=== PATIENT | female | born 1960 | race African-American/Black ===

== ENCOUNTER 2020-03-04 20:41 | Inpatient (IN) | payer MEDICAID ==
[~2020-03-04] VITALS: Ht 165.1 cm; Wt 70.3 kg
[2020-03-04] MEDS ORDERED: KETOROLAC 30MG/ML VIAL IV STA (22:32)
[2020-03-04] MEDS ORDERED: SODIUM CHLORIDE 0.9% 1,000 ML IV ONE (22:32)
[2020-03-04 23:27] LABS: BASOPHILS % 1.2 % (0.0-2.0); EOSINOPHILS % 7.7 % (0.0-5.0); HEMATOCRIT. 37.2 % (36.0-48.0); HEMOGLOBIN. 12.4 g/dL (12.0-16.0); LYMPHOCYTES % 34.5 % (20.0-50.0); MEAN CORPUSCULAR HEMOGLOBIN 25.6 pg (28.0-32.0); MEAN CORPUSCULAR VOLUME 76.7 fL (81.0-99.0); MEAN PLATELET VOLUME 8.5 fl (7.4-10.4); MONOCYTES % 12.2 % (2.0-8.0); NEUTROPHILS % 44.4 % (40.0-76.0); PLATELET 285 x1000/uL (130-400); RED BLOOD CELL COUNT 4.85 mill/uL (4.2-5.4); RED CELL DISTRIBUTION WIDTH 16.4 % (11.6-14.6)
[2020-03-04 23:31] LABS: CHLORIDE 106 mEq/L (98-107)
[2020-03-04 23:32] LABS: PROTHROMBIN TIME 10.3 sec (9.6-11.0)
[2020-03-04 23:37] LABS: C REACTIVE PROTEIN QUANT 4.3 mg/L (0.0-3.0)
[2020-03-04 23:39] LABS: CREATINE KINASE 80 IU/L (26-192)
[2020-03-05] MEDS ORDERED: PIPERACILLIN/TAZ 3.375G PREMIX 50 ML IV ONE (00:15)
[2020-03-05] MEDS ORDERED: VANCOMYCIN 1 G PREMIX 200 ML IV SCH (00:15)
[2020-03-05] MEDS ORDERED: MORPHINE SULFATE 4 MG/ML CPJ (NOT FOR IM USE) IV ONE (04:00)
[2020-03-05] MEDS ORDERED: FAMOTIDINE 20MG/2ML VIAL IV NR (04:45)
[2020-03-05] MEDS ORDERED: ONDANSETRON HCL 4MG/2ML INJ IV NR (04:45)
[2020-03-05] MEDS: CLONIDINE 0.1MG TABLET PO PRN (04:58)
[2020-03-05] MEDS ORDERED: ACETAMINOPHEN 650MG SUPP PR PRN ×2 (07:45)
[2020-03-05] MEDS ORDERED: MAGNESIUM/ALUMINUM HYDROXIDE/SIMETHICONE 30ML UDC PO PRN (07:45)
[2020-03-05] MEDS ORDERED: PIPERACILLIN/TAZ 3.375G PREMIX 50 ML IV SCH ×2 (07:45→08:00)
[2020-03-05] MEDS ORDERED: DIPHENHYDRAMINE 50MG/ML VIAL IV PRN (07:45)
[2020-03-05] MEDS ORDERED: NA PHOS,M-B/NA PHOS,DI-BA ENEMA 118ML PR PRN (07:45)
[2020-03-05] MEDS ORDERED: ONDANSETRON HCL 4MG/2ML INJ IV PRN (07:45)
[2020-03-05] MEDS ORDERED: ACETAMINOPHEN 325MG TABLET PO PRN (07:45)
[2020-03-05] MEDS ORDERED: GUAIFENESIN 200MG/10ML SUGAR FREE UDC PO PRN (07:45)
[2020-03-05] MEDS ORDERED: CLONIDINE 0.1MG TABLET PO PRN (07:45)
[2020-03-05] MEDS ORDERED: DOCUSATE SODIUM 100MG CAPSULE PO PRN (07:45)
[2020-03-05] MEDS: SODIUM CHLORIDE 0.45% 1,000 ML IV SCH ×2 (08:17→23:44)
[2020-03-05 08:27] LABS: BASOPHILS % 0.2 % (0.0-2.0); EOSINOPHILS % 1.6 % (0.0-5.0); HEMATOCRIT. 36.5 % (36.0-48.0); LYMPHOCYTES % 14.1 % (20.0-50.0); MEAN CORPUSCULAR HEMOGLOBIN 25.2 pg (28.0-32.0); MEAN CORPUSCULAR VOLUME 76.7 fL (81.0-99.0); MEAN PLATELET VOLUME 7.2 fl (7.4-10.4); MONOCYTES % 10.9 % (2.0-8.0); NEUTROPHILS % 73.2 % (40.0-76.0); PLATELET 202 x1000/uL (130-400); RED BLOOD CELL COUNT 4.76 mill/uL (4.2-5.4); RED CELL DISTRIBUTION WIDTH 16.3 % (11.6-14.6)
[2020-03-05 08:37] LABS: CHLORIDE 109 mEq/L (98-107)
[2020-03-05] MEDS: AMLODIPINE 10MG TABLET PO SCH (09:06)
[2020-03-05] MEDS: ENOXAPARIN 40MG/0.4ML SYR SUBCUT SCH (09:22)
[2020-03-05 13:50] VITALS: BP 120/78
[2020-03-05] MEDS ORDERED: PIPERACILLIN/TAZOBACTAM 3.375 G in DEXT 5% WATER 100 ML IV SCH (14:00)
[2020-03-05] MEDS: HYDROCODONE/ACETAMINOPHEN 10/325MG TABLET PO PRN ×2 (14:45→21:16)
[2020-03-05 16:00] VITALS: BP 120/78
[2020-03-05 20:00] VITALS: BP 141/89
[2020-03-05] MEDS: CLINDAMYCIN 600MG PREMIX 50 ML IV SCH (21:14)
[2020-03-06] VITALS (8 sets, daily range): BP systolic 126–169; BP diastolic 68–104
[2020-03-06] MEDS: CLINDAMYCIN 600MG PREMIX 50 ML IV SCH ×3 (03:32→19:48)
[2020-03-06] MEDS: HYDROCODONE/ACETAMINOPHEN 10/325MG TABLET PO PRN ×3 (05:53→22:31)
[2020-03-06 06:32] LABS: BASOPHILS % 0.3 % (0.0-2.0); EOSINOPHILS % 4.2 % (0.0-5.0); HEMATOCRIT. 35.3 % (36.0-48.0); HEMOGLOBIN. 11.6 g/dL (12.0-16.0); MEAN CORPUSCULAR VOLUME 76.5 fL (81.0-99.0); MEAN PLATELET VOLUME 7.5 fl (7.4-10.4); MONOCYTES % 12.1 % (2.0-8.0); NEUTROPHILS % 64.4 % (40.0-76.0); PLATELET 212 x1000/uL (130-400); RED BLOOD CELL COUNT 4.62 mill/uL (4.2-5.4); RED CELL DISTRIBUTION WIDTH 16.2 % (11.6-14.6)
[2020-03-06 07:04] LABS: CHLORIDE 108 mEq/L (98-107)
[2020-03-06 07:10] LABS: LDL CHOLESTEROL 61 mg/dL (5-100)
[2020-03-06 07:14] LABS: HDL CHOLESTEROL 62 mg/dL (40-59)
[2020-03-06] MEDS: AMLODIPINE 10MG TABLET PO SCH (08:43)
[2020-03-06] MEDS: ENOXAPARIN 40MG/0.4ML SYR SUBCUT SCH (08:44)
[2020-03-06] MEDS ORDERED: ONDANSETRON HCL 4MG/2ML INJ IV PRN ×2 (11:15→18:30)
[2020-03-06] MEDS: SODIUM CHLORIDE 0.45% 1,000 ML IV SCH (11:38)
[2020-03-06] MEDS: CLONIDINE 0.1MG TABLET PO PRN (17:16)
[2020-03-06] MEDS ORDERED: LACTULOSE 20G/30ML UDC PO NR (18:15)
[2020-03-06] MEDS: BENAZEPRIL 5MG TABLET PO SCH (18:52)
[2020-03-06] MEDS ORDERED: FAMOTIDINE 20MG TABLET PO SCH (21:00)
[2020-03-06] MEDS: FAMOTIDINE 20MG TABLET PO SCH (22:00)
[2020-03-07 03:40] VITALS: BP 109/78
[2020-03-07 04:00] VITALS: BP 129/89
[2020-03-07] MEDS: CLINDAMYCIN 600MG PREMIX 50 ML IV SCH ×2 (04:18→11:15)
[2020-03-07 08:00] VITALS: BP 176/89
[2020-03-07] MEDS: BENAZEPRIL 5MG TABLET PO SCH (08:35)
[2020-03-07] MEDS: ENOXAPARIN 40MG/0.4ML SYR SUBCUT SCH (08:36)
[2020-03-07] MEDS: AMLODIPINE 10MG TABLET PO SCH (08:36)
[2020-03-07] MEDS: FAMOTIDINE 20MG TABLET PO SCH (08:36)
[2020-03-07] MEDS: HYDROCODONE/ACETAMINOPHEN 10/325MG TABLET PO PRN (08:47)
[2020-03-07] MEDS ORDERED: CEPH-569 MT (10:05)
[2020-03-07] MEDS ORDERED: BENA20TA77 MT (10:05)
[2020-03-07 12:00] VITALS: BP 134/88
[2020-03-07 12:01] LABS: BASOPHILS % 0.5 % (0.0-2.0); EOSINOPHILS % 5.7 % (0.0-5.0); HEMATOCRIT. 33.7 % (36.0-48.0); HEMOGLOBIN. 11.2 g/dL (12.0-16.0); LYMPHOCYTES % 30.5 % (20.0-50.0); MEAN CORPUSCULAR HEMOGLOBIN 25.5 pg (28.0-32.0); MEAN CORPUSCULAR VOLUME 76.9 fL (81.0-99.0); MEAN PLATELET VOLUME 7.5 fl (7.4-10.4); MONOCYTES % 13.6 % (2.0-8.0); NEUTROPHILS % 49.7 % (40.0-76.0); PLATELET 209 x1000/uL (130-400); RED BLOOD CELL COUNT 4.38 mill/uL (4.2-5.4); RED CELL DISTRIBUTION WIDTH 16.3 % (11.6-14.6)
[2020-03-07 12:20] LABS: CLARITY URINE CLEAR (CLEAR); COLOR URINE YELLOW (YELLOW); KETONES URINE NEGATIVE (NEGATIVE); LEUKOCYTE ESTERASE URINE NEGATIVE (NEGATIVE); NITRITE URINE NEGATIVE (NEGATIVE); OCCULT BLOOD URINE NEGATIVE (NEGATIVE); PH URINE 6.5 (4.5-8.0); PROTEIN URINE NEGATIVE (NEGATIVE); SPECIFIC GRAVITY URINE 1.019 (1.005-1.030)
[2020-03-07] MEDS: SODIUM CHLORIDE 0.45% 1,000 ML IV SCH ×2 (12:24)
[2020-03-07 12:40] LABS: *AMPHETAMINES SCREEN URINE NEGATIVE (NEGATIVE); *BARBITURATES SCREEN URINE NEGATIVE (NEGATIVE); *BENZODIAZEPINES SCREEN URINE NEGATIVE (NEGATIVE); *COCAINE SCREEN URINE NEGATIVE (NEGATIVE); METHADONE URINE SCREEN NEGATIVE (NEGATIVE); OPIATES URINE SCREEN PRESUMTIVE POSITIVE (NEGATIVE)
[2020-03-07 12:42] LABS: CHLORIDE 107 mEq/L (98-107)
[2020-03-07 12:42] LABS: CANNABINOID URINE SCREEN NEGATIVE (NEGATIVE); PHENCYCLIDINE URINE SCREEN NEGATIVE (NEGATIVE)
[2020-03-07 15:00] VITALS: BP 102/54
[2020-03-07 16:00] VITALS: BP 116/67
== END 2020-03-07 15:25 | disposition home or self-care (01) | DRG 816 ==
LOC: ER 20:41 → 6EST 03-05 02:06 → EDBEDREQSVC 03-05 02:11 → EDBEDREQDT 03-05 02:11 → EDBEDREQ 03-05 02:11 → EDBEDREQTM 03-05 02:11 → ENRESERV 03-05 12:29
PROVIDERS: ADMIT Family Medicine; ATTEND Family Medicine
DX: T63.301A Toxic effect of unspecified spider venom, accidental (unintentional), initial encounter (principal); L03.113 Cellulitis of right upper limb; I10 Essential (primary) hypertension; S41.151A Open bite of right upper arm, initial encounter; Z91.012 Allergy to eggs; Z91.02 Food additives allergy status; Z91.018 Allergy to other foods; Y92.89 Other specified places as the place of occurrence of the external cause; Y99.8 Other external cause status
CPT/HCPCS: 36415; 71045; 74018; 80053; 80061; 80305; 81003; 82550; 83605; 84145; 84484; 85025; 85651; 86140; 99285; J1650; J1885; J2270; J2405; J2543; J3370; J3490; J7030; J7060

== ENCOUNTER 2022-11-04 11:44 | Emergency (ER) | payer MEDICAID, OTHER ==
[~2022-11-04] VITALS: Ht 165.1 cm; Wt 59.0 kg
[~2022-11-04 11:44] MED LIST: BENA20TA77 MT; CEPH-569 MT
[2022-11-04] MEDS ORDERED: KETOROLAC 30MG/ML VIAL IM ONE (14:45)
[2022-11-04] MEDS ORDERED: T3 PO (15:05)
[2022-11-04] MEDS ORDERED: IBUP-2030 PO (15:10)
[2022-11-04 15:20] VITALS: BP 151/73
== END 2022-11-04 15:34 | disposition home or self-care (01) ==
LOC: ER 11:44
DX: S96.911A Strain of unspecified muscle and tendon at ankle and foot level, right foot, initial encounter (principal); W18.39XA Other fall on same level, initial encounter; Y93.89 Activity, other specified; Y92.89 Other specified places as the place of occurrence of the external cause; Y99.8 Other external cause status; D64.9 Anemia, unspecified; I10 Essential (primary) hypertension
CPT/HCPCS: 73521; 73610; 73630; 96372; 99284; J1885; Z7610

== ENCOUNTER 2024-08-22 02:01 | Emergency (ER) | payer MEDICAID ==
[~2024-08-22] VITALS: Ht 165.1 cm; Wt 64.6 kg
[~2024-08-22 02:01] MED LIST changes: +IBUP-2030 PO; +T3 PO
[2024-08-22 02:09] VITALS: O2SAT 98
[2024-08-22 02:16] VITALS: BP 187/110; PULSE 97; RESP 16; O2SAT 98
[2024-08-22 03:39] VITALS: TEMP 98.8
[2024-08-22] MEDS: ACETAMINOPHEN 650MG/20.3ML UDC PO ONE (03:39)
== END 2024-08-22 03:44 | disposition home or self-care (01) ==
LOC: ER 02:01
DX: J02.8 Acute pharyngitis due to other specified organisms (principal); B97.89 Other viral agents as the cause of diseases classified elsewhere; I10 Essential (primary) hypertension; D64.9 Anemia, unspecified
CPT/HCPCS: 87430; 99283